=== PATIENT | male | born 1965 | race Caucasian/White ===

== ENCOUNTER 2019-02-02 00:39 | Emergency (ER) | payer OTHER ==
[2019-02-02 00:58] VITALS: BP 111/71; PULSE 78; TEMP 97.5; BMI 26.7
--- NOTE | 2019-02-02 01:01 | PDOC ---
History of Present Illness - General Chief Complaint: Alcohol intoxication Stated Complaint: INTOXICATION Time Seen by Provider: 02/02/19 00:55 - History of Present Illness Initial Comments: This 53-year-old man with a history of HTN/depression arrives by ambulance with a history of alcohol intoxication: [facility] was called by bystanders when the patient was seen sleeping on the sidewalk. EMS was called and patient transported here. According to EMS, patient was awake at seen and ambulatory onto the stretcher for transport . On arrival, the patient is awake, alert and oriented. He states that he "drank too much vodka and beer" at an event this evening. He states that it became very fatigued after this, especially since he played golf earlier today and played 3 hours of tennis yesterday. He denies headache/nausea/chest pain/shortness of breath/abdominal pain. His only complaint is that he is currently very thirsty Past History - Past Medical History Allergies/Adverse Reactions: Allergies Allergy/AdvReac Type Severity Reaction Status Date / Time codeine [Codeine] Allergy Verified 02/02/19 00:50 Home Medications: Ambulatory Orders Bupropion HCl [Wellbutrin -] 300 mg PO DAILY 08/26/14 Dextroamphetamine/Amphetamine [Adderall 5 mg Tablet] 5 mg PO DAILY 08/26/14 Duloxetine HCl [Cymbalta -] 60 mg PO DAILY 08/26/14 Lamotrigine [Lamictal] 250 mg PO DAILY 08/26/14 Acetaminophen [Tylenol .Regular Strength -] 650 mg PO Q6H PRN #0 tablet Amlodipine Besylate [Norvasc -] 5 mg PO DAILY #0 tablet 08/27/14 Valsartan [Diovan] 160 mg PO DAILY #0 tablet 08/27/14 Anemia: No Asthma: No Cancer: No Cardiac Disorders: No CVA: No COPD: No CHF: No Dementia: No Diabetes: No GI Disorders: No Disorders: No HTN: Yes Hypercholesterolemia: No Liver Disease: No Seizures: No Thyroid Disease: No Other medical history: DEPRESSION - Surgical History Orthopedic Surgery: Yes (MULTIPLE KNEE ARTHROSCOPIES) - Suicide/Smoking/Psychosocial Hx Smoking Status: No Smoking History: Never smoked Have you smoked in the past 12 months: No Number of Cigarettes Smoked Daily: 0 Information on smoking cessation initiated: No Hx Alcohol Use: Yes (THREE TIMES A WEEK) Drug/Substance Use Hx: No Substance Use Type: Alcohol Hx Substance Use Treatment: No Review of Systems - Review of Systems Able to Perform ROS?: Yes Comments:: 12 point review of systems is negative except for what is noted in the history of present illness *Physical Exam - Vital Signs Last Vital Signs Temp Pulse Resp BP Pulse Ox 97.5 F L 78 15 111/71 97 02/02/19 00:51 02/02/19 00:51 02/02/19 00:51 02/02/19 00:51 02/02/19 00:51 - Physical Exam Comments: GENERAL: Adult male, alert and oriented 3, slightly slurred speech with alcohol on breath HEAD: Normal with no signs of trauma. EYES: PERRLA, EOMI, sclera anicteric, conjunctiva clear. ENT: Ears normal, nares patent, oropharynx clear without exudates. Dry mucous membranes. NECK: Normal range of motion, supple without lymphadenopathy, JVD, or masses. LUNGS: Breath sounds equal, clear to auscultation bilaterally. No wheezes, and no crackles. HEART:Regular rate and rhythm, normal S1 and S2 without murmur, rub or gallop. ABDOMEN:.normal bowel sounds No guarding,tenderness or rebound.No masses No distention. EXTREMITIES: Normal range of motion, no edema. No clubbing or cyanosis. No erythema, or tenderness. NEUROLOGICAL: Cranial nerves II through XII grossly intact. Normal speech. No focal neurological deficits. MUSCULOSKELETAL: Back non-tender to palpation, no CVA tenderness SKIN: Warm, Dry, normal turgor, no rashes or lesions noted. Medical Decision Making - Medical Decision Making This 53-year-old man with a history hypertension and depression brought in by EMS after he was found sleeping on a sidewalk intoxicated. Patient was ambulatory and alert at the scene and was able to walk onto the stretcher for transport to the ER. He has no complaints except for being thirsty. On exam, patient has dry mucous membranes but no other notable abnormalities. There is no evidence of trauma. The patient was given approximately 16 ounces of water by mouth which he tolerated well. He subsequently stated that he felt better. He had no abdominal discomfort or nausea after oral challenge. He was able to get up from the stretcher and ambulate without significant ataxia. The patient has no family here in the ER with him. His is at home but she was also drinking alcohol at the event so she will not be called to transport the patient home. The patient has his house keys with him. He will be discharged to be transported home by automobile driven by a friend. He has been advised to rest and avoid strenuous activity over the next 24 hours, to give plenty of fluids. *DC/Admit/Observation/Transfer Diagnosis at time of Disposition: Alcohol intoxication Qualifiers: Complication of substance-induced condition: uncomplicated Qualified Code(s): F10.920 - Alcohol use, unspecified with intoxication, uncomplicated - Discharge Dispostion Disposition: HOME Condition at time of disposition: Stable - Referrals Referrals: Jaskaran Diehl [Non Staff, Medical] - - Patient Instructions Printed Discharge Instructions: DI for Dehydration -- Adult Additional Instructions: rest ; avoid strenuous exercise for the next 24 hours Drink plenty of water Continue medications as prescribed Followup with Dr Diehl within the next week - Post Discharge Activity
== END 2019-02-02 01:38 | disposition home or self-care (01) ==
LOC: FER 00:39
DX: F10.920 Alcohol use, unspecified with intoxication, uncomplicated (principal); I10 Essential (primary) hypertension; F32.9 Major depressive disorder, single episode, unspecified
CPT/HCPCS: 99281-25

== ENCOUNTER 2022-04-05 01:12 | Emergency (ER) | payer OTHER ==
[2022-04-05 01:56] VITALS: BP 135/94; PULSE 95; RESP 18; TEMP 98.7; BMI 27.8
[2022-04-05 02:31] LABS: BASO % 0.8 % (0-2.0); EOS % 1.8 % (0-4.5); HEMATOCRIT 45.5 % (35.4-49); HEMOGLOBIN 15.2 GM/dL (11.7-16.9); LYMPH % 17.2 % (8-40); MCH 30.8 pg (25.7-33.7); MCHC 33.4 g/dl (32.0-35.9); MEAN CELL VOLUME 92.4 fl (80-96); MEAN PLT VOLUME 7.6 fl (7.5-11.1); MONO % 8.4 % (3.8-10.2); NEUT % 71.8 % (42.8-82.8); PLATELET COUNT 276 10^3/uL (134-434); RBC 4.93 M/mm3 (4.00-5.60); WHITE BLOOD COUNT 11.5 K/mm3 (4.0-10.0)
[2022-04-05 02:53] LABS: CALCIUM 9.1 mg/dL (8.5-10.1)
[2022-04-05 02:54] LABS: ALBUMIN 3.6 g/dl (3.4-5.0); BLOOD UREA NITROGEN 20.9 mg/dL (7-18)
[2022-04-05 02:57] LABS: CREATININE 1.1 mg/dL (0.55-1.3)
[2022-04-05 02:58] LABS: TOT PROT 6.6 g/dl (6.4-8.2)
[2022-04-05 02:59] LABS: BILIRUBIN,TOTAL 0.6 mg/dL (0.2-1)
== END 2022-04-05 05:34 | disposition home or self-care (01) ==
LOC: FER 01:12
DX: R07.89 Other chest pain (principal)
CPT/HCPCS: 36415; 80053; 82550; 84484; 85025; 93005; 99283-25